=== PATIENT | male | born 1940 | race Caucasian/White ===

== ENCOUNTER 2020-03-28 14:49 | Emergency (ER) | payer MEDICARE, OTHER ==
[~2020-03-28] VITALS: Ht 170.2 cm; Wt 53.5 kg
--- NOTE | 2020-03-28 14:49 | NUR ---
1446---Patient BIBDimitrios ALS accompanied by [facility] with CPR in progress, transferred to bed 10. CPR continued by [facility] staff. Dr. Vazquez, RT and RN are evaluating the patient at bedside.
--- NOTE | 2020-03-28 14:49 | NUR ---
1447---PT ARRIVED TO ED AT 1447, IN CARDIAC ARREST. PT WAS AT DIALYSIS, COMPLETED TREATMENT. PT BECAME UNRESPONSIVE, WITNESSED BY DIALYSIS STAFF. FACILITY STARTED CPR AND CALLED 911. [place] FIRE ARRIVED ON SCENE, FOUND PT UNRESPONSIVE, APNIC, ASYSTOLE ON REMITTANCE CLERK. IO ESTABLISHED TO LEFT LOWER LEG BY FIRE. CPR CONTINUED, ACLS PROTOCOL CONTINUED. X3 EPI GIVEN IO, NO SHOCKS WERE DELIVERED. PT WAS ASYSTOLE DURING EMS CARE. PT TESTED COVID + 03/14/2020. PT ARRIVED TO ED, ACLS INITIATED BY ED STAFF. HX DIALYSIS, DM
--- NOTE | 2020-03-28 14:52 | NUR ---
Time of , pronounced by Dr. Vazquez.
--- NOTE | 2020-03-28 15:06 | NUR ---
[facility] REF# [id number] SPOKE TO DARIAN, NOT ELIGIBLE FOR DONATION
--- NOTE | 2020-03-28 15:12 | NUR ---
CALLED MADE TO [facility], WAITING FOR DEPUTY TO CALL BACK.
--- NOTE | 2020-03-28 15:24 | NUR ---
SPOKE TO FAMILY INFORMED BOTH SHANE AND JOSETTE OF FATHER'S PASSING. INFORMED THEM OF THE PROCESS TO MOVE FORWARD, THEY BOTH UNDERSTOOD THEY ARE REQUIRED TO CONTACT A MORTUARY OF THEIR CHOICE TO HAVE THEIR FATHERS REMAINS PICKED UP. REMAINS TO STAY HERE FOR TIME BEING. PROVIDED HOSPITAL CALLBACK NUMBER FOR ANY FURTHER QUESTIONS.
--- NOTE | 2020-03-28 15:31 | NUR ---
CONTACTED [facility], SPOKE WITH MARIA C MORRIS AND NOTIFIED HER ABOUT . I MADE HER AWARE THAT FAMILY HAS BEEN MADE AWARE. RECEIVED PCP INFORMATION. PMD-- ROLANDO STANFORD [phone] STANFORD AND DID NOT SPEAK WITH HER AT THIS TIME. HER MAILBOX IS FULL AND UNABLE TO LEAVE A VOICEMAIL. WILL TRY TO CALL AGAIN LATER.
--- NOTE | 2020-03-28 16:22 | NUR ---
MARKET DEVELOPMENT SPECIALIST INFO- SPOKE WITH MARKET DEVELOPMENT SPECIALIST- HOLLY SIMEON. BODY IS RELEASED. CASE # [id number]. POST MORTEM CARE PROVIDED. PT MOVED TO OUT DOOR MORGE. CHART GIVEN TO DESIZING MACHINE OPERATOR HEAD END BRENT.
--- NOTE | 2020-03-28 16:52 | NUR ---
PT MOVED TO [facility] [place] THIS [place]. BELONGINGS GIVEN TO [employer].
== END 2020-03-28 14:52 ==
LOC: MED 14:49
DX: I46.9 Cardiac arrest, cause unspecified (principal); E11.22 Type 2 diabetes mellitus with diabetic chronic kidney disease; I12.0 Hypertensive chronic kidney disease with stage 5 chronic kidney disease or end stage renal disease; N18.6 End stage renal disease; Z99.2 Dependence on renal dialysis
CPT/HCPCS: 92950; 99285